=== PATIENT | male | born 2000 | race Caucasian/White ===

== ENCOUNTER 2020-06-14 11:36 | Outpatient (NON) | payer OTHER, SELFPAY ==
[2020-06-14 23:57] LABS: SARS-CoV-2 RNA PCR Negative
== END 2020-06-14 11:37 ==
PROVIDERS: PCP Family Medicine; Visit Provider Family Medicine
DX: J02.9 Acute pharyngitis, unspecified (principal); R05 Cough; R51.9 Headache, unspecified; Z20.828 Contact with and (suspected) exposure to other viral communicable diseases
CPT/HCPCS: 87635; C9803; U0003